=== PATIENT | female | born 1960 | race Caucasian/White ===

== ENCOUNTER → 2018-12-22 | Outpatient (CLI) | payer BC ==
--- NOTE | 2018-12-22 13:20 | PCVCIMAG ---
APPROVED REPORT Indications Bruit Doppler Spectral Velocity Analysis PSV / EDVPSV / EDV ECA (R) 62 / 12 cm/sECA (L) 65 / 14 cm/s dICA (R) 65 / 26 cm/sdICA (L) 64 / 27 cm/s Kary (R) 73 / 36 cm/smICA (L) 64 / 32 cm/s pICA (R) 52 / 18 cm/spICA (L) 36 / 12 cm/s Bulb (R) 39 / 18 cm/sBulb (L) 53 / 13 cm/s dCCA (R) 77 / 22 cm/sdCCA (L) 72 / 22 cm/s mCCA (R) 92 / 25 cm/smCCA (L) 88 / 22 cm/s Vert (R) 30 / 12 cm/sVert (L) 60 / 19 cm/s ICA/CCA 0.79ICA/CCA 0.72 Basic Measurements Blood Pressure: Pulses: Right Left RightLeft Brachial(Sitting) 140/60kpXm655/90mmHgTemporal Real Time B-Mode Imaging Vert. (R)AntegradeVert. (L)Antegrade Findings The right carotid bulb has mild plaque. The right proximal internal carotid artery shows no significant stenosis. The right common carotid artery shows no significant stenosis. The right external carotid artery shows no significant stenosis. The left carotid bulb has mild plaque. The left proximal internal carotid artery shows no significant stenosis. The left common carotid artery shows no significant stenosis. The left external carotid artery shows no significant stenosis. Conclusion 1. No significant stenosis involving either carotid artery 2. Antegrade vertebral flow
--- NOTE | 2018-12-22 14:54 | PCVCIMAG ---
APPROVED REPORT Study performed: 12/22/2018 11:05:55 Exam: Stress Echocardiogram Indication: Chest pain, jaw pain, HTN Patient Location: Echo lab Stress Nurse: Amy Powell RN Room #: 2 Status: routine Ht: 5 ft 4 in HR: 81 bpm BP: 146/92 mmHg Rhythm: NSR Medical History Medical History: HTN, Hyperlipidemia, Palpitations Cardiac Risk Factors: HTN, Hyperlipidemia Previous Cardiac Procedures: none Pretest Chest Pain Characteristics: No chest pain Exercise History: Physically active Procedure The patient underwent an Exercise Stress Test using the Hardeep Protocol. Blood pressure, heart rate, and EKG were monitored. An Echocardiogram was performed by platform power technician in four stages in quad fashion. At peak stress, four selected images were obtained and placed side by side with resting images for comparison. Stress Test Details Stress Test: Exercise stress testing was performed using a Hardeep protocol. HR Resting HR: 89 bpmMax Heart Rate (APMHR): 161 bpm Max HR Achieved: 171 bpmTarget HR (85% APMHR): 136 bpm % of APMHR: 106 Recovery HR: 108 bpm HR response to stress: Normal HR response to stress BP Resting BP: 146/92 mmHg Max BP: 176/76 mmHg Recovery BP: 152/76 mmHg BP response to stress: Normal blood pressure response to stress. ECG Resting ECG: Sinus Rhythm Stress ECG: Sinus Rhythm, LVH with repolarization changes ST Change: Horizontal ST depression Maximum ST Deviation: 2 mm Arrhythmia: Rare PAC, PVC Recovery ECG: Sinus Rhythm, LVH with repolarization changes Recovery ST Change: Horizontal ST depression Recovery ST Deviation: 1.5 mm Recovery Arrhythmia: None Clinical Reason for Termination: Maximal effort Stress Symptoms: leg fatigue Exercise duration: 9 min 00 sec Highest Stage Achieved: Stage 3: 3.4 mph at 14% grade. Exercise capacity: 10.1 METs Overall Exercise Capacity for Age: Normal Scale: Active Angina Score: None No complications. Stress ECG Conclusion The patient exercised according to the HARDEEP protocol for 9:00 mins; achieving a work level of 10.1 METS. The resting heart rate of 81 bpm fani to a maximum heart rate of 171 bpm. This value represents 106% of the maximal, age-predicted heart rate. The resting blood pressure of 146/92 mmHg, fani to a maximum blood pressure of 176/76 mmHg. The exercise test was stopped due to fatigue and dyspnea. Stratton Treadmill Score is -1.0 which is Moderate risk. Pre-Stress Echo The resting Echocardiogram showed normal left ventricular contractility with an estimated Ejection Fraction of about 55-60%. Normal wall motion in all segments on baseline images. Post-Stress Echo The stress Echocardiogram showed normal left ventricular contractility with an estimated Ejection Fraction of about 65-70%. Normal augmentation of wall motion in all segments on post stress images. Clinical No clinical evidence for ischemia. Conclusion Clinical Response: Non-ischemic Exercise Capacity: Average Stress ECG Response: Ischemic Stress Echo Images: Non-ischemic No echocardiographic evidence for exercise induced ischemia. No clinical or echocardiographic evidence for ischemia. Probable false positive electrocardiographic response to excercise Normal stress echocardiogram with maximal exercise stress. <Conclusion> No echocardiographic evidence for exercise induced ischemia. No clinical or echocardiographic evidence for ischemia. Probable false positive electrocardiographic response to excercise Normal stress echocardiogram with maximal exercise stress.
== END | disposition home or self-care (01) ==
LOC: PCVCIMAG 12:31
PROVIDERS: ATTEND Internal Medicine
DX: I65.23 Occlusion and stenosis of bilateral carotid arteries (principal); R07.9 Chest pain, unspecified; I10 Essential (primary) hypertension; E78.5 Hyperlipidemia, unspecified; R68.84 Jaw pain; R09.89 Other specified symptoms and signs involving the circulatory and respiratory systems
CPT/HCPCS: 93325; 93351; 93880